=== PATIENT | male | born 1955 | race Two or more races ===

== ENCOUNTER 2021-02-03 16:00 | Emergency (ER) | payer OTHER, MEDICAID ==
[~2021-02-03] VITALS: Ht 172.7 cm; Wt 68.0 kg
[2021-02-03] MEDS ORDERED: LORazepam 2MG/ML-1ML VIAL IV ONE (16:30)
[2021-02-03] MEDS ORDERED: SODIUM CHLORIDE 0.9% 1,000 ML IV ONE ×2 (16:30)
[2021-02-03 16:43] LABS: Basophils # (auto) 0.1 10 ^3/uL (0-0.2); Basophils % (auto) 1.1 % (0.0-2.0); Eosinophils # (auto) 0.1 10 ^3/uL (0-0.8); Eosinophils % (auto) 2.3 % (0.0-7.0); Hematocrit 42.5 % (41.0-53.0); Hemoglobin 14.2 g/dL (13.5-17.5); Lymphocytes # (auto) 0.9 10 ^3/uL (0.4-5.4); Lymphocytes % (auto) 17.4 % (10.0-50.0); Mean Corpuscular Hemoglobin 27.7 pg (28.0-32.0); Mean Corpuscular Hgb Conc. 33.4 g/dL (32.0-36.0); Monocytes # (auto) 0.6 10 ^3/uL (0-1.3); Monocytes % (auto) 10.8 % (0.0-12.0); Neutrophils # (auto) 3.6 10 ^3/uL (1.6-8.6); Neutrophils % (auto) 68.4 % (37.0-80.0); Red Blood Cells 5.12 10^6/uL (4.5-5.90); Red Cell Distribution Width 17.9 % (11.8-14.3); White Blood Cell 5.3 10^3/uL (4.4-10.8)
[2021-02-03 17:03] LABS: Alanine Aminotransferase 36 U/L (16-61); Albumin 3.7 g/dL (3.4-5.0); Anion Gap 3 (5-15); Aspartate Aminotransferase 27 U/L (15-37); BUN/Creatinine Ratio 6.6; Blood Urea Nitrogen 7 mg/dL (7-18); Carbon Dioxide 26 mmol/L (21-32); Chloride 113 mmol/L (98-107); GFR African American 90 mL/min; GFR Non-African American 75 mL/min; Glucose 138 mg/dL (74-106); Sodium 142 mmol/L (136-145)
[2021-02-03 17:08] LABS: Alkaline Phosphatase 122 U/L (45-117); Bilirubin, Total 0.5 mg/dL (0.2-1.0); Total Protein 7.1 g/dL (6.4-8.2)
[2021-02-03] MEDS ORDERED: NITROGLYCERIN 50MG/250ML 250 ML IV ONE (18:12)
[2021-02-03 18:56] VITALS: BP 157/101
== END 2021-02-03 21:51 | disposition short-term general hospital (02) ==
LOC: ER 16:00 → EDBD 16:00 → ER 21:51
DX: R56.9 Unspecified convulsions (principal); G93.89 Other specified disorders of brain; I16.0 Hypertensive urgency; J44.9 Chronic obstructive pulmonary disease, unspecified; Z20.822 Contact with and (suspected) exposure to COVID-19
CPT/HCPCS: 36415; 70450; 71045; 80053; 84484; 85025; 87426; 93005; 96361; 96365; 96366; 96368; 96375; 99285; J1953; J2060; J7030; J7060

== ENCOUNTER 2021-07-19 16:37 | Inpatient (IN) | payer OTHER, MEDICAID ==
[~2021-07-19] VITALS: Ht 170.2 cm; Wt 49.8 kg
[2021-07-19] MEDS ORDERED: SODIUM CHLORIDE 0.9% 1,000 ML IV ONE (19:00)
[2021-07-19 21:01] LABS: Basophils # (auto) 0 10 ^3/uL (0-0.2); Basophils % (auto) 0.3 % (0.0-2.0); Eosinophils # (auto) 0.1 10 ^3/uL (0-0.8); Mean Corpuscular Hemoglobin 26.1 pg (28.0-32.0); Mean Corpuscular Hgb Conc. 31.4 g/dL (32.0-36.0); Monocytes # (auto) 1.3 10 ^3/uL (0-1.3)
[2021-07-19 21:03] LABS: Eosinophils % (auto) 0.5 % (0.0-7.0); Lymphocytes # (auto) 2.2 10 ^3/uL (0.4-5.4); Lymphocytes % (auto) 18.6 % (10.0-50.0); Monocytes % (auto) 10.4 % (0.0-12.0); Neutrophils # (auto) 8.4 10 ^3/uL (1.6-8.6); Neutrophils % (auto) 70.2 % (37.0-80.0); Nucleated Red Blood Cells % 0.2 %; Red Blood Cells 6.91 10^6/uL (4.5-5.90)
[2021-07-19 21:04] LABS: Hematocrit 57.4 % (41.0-53.0); Red Cell Distribution Width 21.1 % (11.8-14.3)
[2021-07-19 21:17] LABS: Calcium 10.5 mg/dL (8.5-10.1); Magnesium 3.8 mg/dL (1.6-2.6); Potassium 4.4 mmol/L (3.5-5.1)
[2021-07-19 21:25] LABS: BUN/Creatinine Ratio 31.3; Bilirubin, Total 0.7 mg/dL (0.2-1.0); Total Protein 7.8 g/dL (6.4-8.2)
[2021-07-19] MEDS ORDERED: D5W/SOD CHL 0.45% 1,000 ML IV ONE (23:30)
[2021-07-20] MEDS ORDERED: LORazepam 2MG/ML-1ML VIAL IV ONE (04:15)
[2021-07-20] MEDS ORDERED: MORPHINE SULFATE INJECTION 2 MG/ML SYRG IV PRN (04:30)
[2021-07-20] MEDS ORDERED: NITROGLYCERIN 0.4 MG SL TAB SL PRN (04:30)
[2021-07-20] MEDS ORDERED: D5W 5% 1,000 ML IV ONE (04:45)
[2021-07-20] MEDS ORDERED: DEXTROSE (50%) 50ML SYRG IV PRN (04:45)
[2021-07-20] MEDS: InsuLIN REG 1unit/0.01ml Soln (100units/ml) SC SCH ×4 (07:00→21:13)
[2021-07-20] MEDS: ACCU-CHEK COMFORT CURVE STRIP VI SCH ×4 (07:31→21:13)
[2021-07-20 07:55] LABS: Potassium 4.1 mmol/L (3.5-5.1)
[2021-07-20 08:05] LABS: BUN/Creatinine Ratio 33.8; Calcium 9.5 mg/dL (8.5-10.1)
[2021-07-20] MEDS: ENOXAPARIN SOD 40 MG/0.4 ML SYRINGE SC SCH (09:18)
[2021-07-20] MEDS ORDERED: amLODIPine BESYLATE 5 MG TAB PO ONE (10:45)
[2021-07-20] MEDS ORDERED: cefTRIAXone 1GM/50ML D5W 50 ML IV ONE (12:30)
[2021-07-20] MEDS ORDERED: SOD CHL 0.45% 1,000 ML IV SCH (12:30)
[2021-07-20 16:33] VITALS: BP 126/78
[2021-07-20 20:00] VITALS: BP 149/71
[2021-07-20] MEDS ORDERED: LORazepam 2MG/ML-1ML VIAL IV PRN (20:30)
[2021-07-20] MEDS: PHENYTOIN SODIUM 100 MG CAP PO SCH (21:20)
[2021-07-21] MEDS: D5W 5% 1,000 ML IV SCH ×5 (00:25→20:25)
[2021-07-21 05:00] VITALS: BP 139/75
[2021-07-21 05:41] LABS: Basophils # (auto) 0 10 ^3/uL (0-0.2); Eosinophils # (auto) 0.2 10 ^3/uL (0-0.8); Lymphocytes # (auto) 1.3 10 ^3/uL (0.4-5.4); Monocytes # (auto) 0.6 10 ^3/uL (0-1.3)
[2021-07-21 05:43] LABS: Basophils % (auto) 0.2 % (0.0-2.0); Eosinophils % (auto) 2.3 % (0.0-7.0); Hematocrit 45.4 % (41.0-53.0); Hemoglobin 14.6 g/dL (13.5-17.5); Lymphocytes % (auto) 19.3 % (10.0-50.0); Mean Corpuscular Hemoglobin 26.1 pg (28.0-32.0); Mean Corpuscular Hgb Conc. 32.2 g/dL (32.0-36.0); Mean Corpuscular Volume 80.9 fL (80.0-100.0); Monocytes % (auto) 8.7 % (0.0-12.0); Neutrophils # (auto) 4.7 10 ^3/uL (1.6-8.6); Neutrophils % (auto) 69.5 % (37.0-80.0); Nucleated Red Blood Cells % 0.3 %; Red Blood Cells 5.62 10^6/uL (4.5-5.90); White Blood Cell 6.8 10^3/uL (4.4-10.8)
[2021-07-21 05:53] LABS: Red Cell Distribution Width 20.3 % (11.8-14.3)
[2021-07-21 06:00] LABS: Albumin 3.2 g/dL (3.4-5.0); Calcium 8.9 mg/dL (8.5-10.1); Potassium 3.3 mmol/L (3.5-5.1)
[2021-07-21 06:06] LABS: BUN/Creatinine Ratio 30.1; Bilirubin, Total 0.7 mg/dL (0.2-1.0); Total Protein 6.4 g/dL (6.4-8.2)
[2021-07-21] MEDS: ACCU-CHEK COMFORT CURVE STRIP VI SCH ×4 (06:08→21:16)
[2021-07-21] MEDS: InsuLIN REG 1unit/0.01ml Soln (100units/ml) SC SCH ×4 (06:09→21:09)
[2021-07-21 08:30] VITALS: BP 144/69
[2021-07-21] MEDS: cefTRIAXone 1GM/50ML D5W 50 ML IV SCH (08:33)
[2021-07-21] MEDS: PHENYTOIN SODIUM 100 MG CAP PO SCH ×2 (09:40→21:15)
[2021-07-21] MEDS: ENOXAPARIN SOD 40 MG/0.4 ML SYRINGE SC SCH (09:41)
[2021-07-21] MEDS: amLODIPine BESYLATE 5 MG TAB PO SCH (09:41)
[2021-07-21 10:30] VITALS: BP 144/69
[2021-07-21 13:00] VITALS: BP 129/18
[2021-07-21 17:00] VITALS: BP 110/57
[2021-07-21] MEDS ORDERED: acetaZOLAMIDE SODIUM 500 MG VL IV ONE (19:30)
[2021-07-21] MEDS ORDERED: LORazepam 2MG/ML-1ML VIAL IV PRN ×2 (19:30)
[2021-07-21 22:00] VITALS: BP 135/83
[2021-07-22] MEDS: D5W 5% 1,000 ML IV SCH ×2 (01:09→16:00)
[2021-07-22 01:49] LABS: Urine Bacteria FEW /hpf (None Seen); Urine Blood Negative /uL (Negative); Urine Hyaline Cast FEW /lpf (0 - 2); Urine Specific Gravity 1.014 (1.001-1.035); Urine WBC 2 /hpf (0 - 3)
[2021-07-22 01:58] LABS: Amphetamine Screen, Urine NEGATIVE (NEGATIVE); Barbiturate Scree,Urine NEGATIVE (NEGATIVE); Benzodiazephine Screen, Urine NEGATIVE (NEGATIVE); Cannabinoid Screen, Urine NEGATIVE (NEGATIVE); Cocaine Screen, Urine NEGATIVE (NEGATIVE); Opiate Scree,Urine NEGATIVE (NEGATIVE); Phencyclidine Screen, Urine NEGATIVE (NEGATIVE)
[2021-07-22 05:00] VITALS: BP 130/73
[2021-07-22] MEDS: ACCU-CHEK COMFORT CURVE STRIP VI SCH ×4 (06:17→22:15)
[2021-07-22] MEDS: InsuLIN REG 1unit/0.01ml Soln (100units/ml) SC SCH ×4 (06:19→22:00)
[2021-07-22 09:00] VITALS: BP 137/70
[2021-07-22 09:03] LABS: Basophils # (auto) 0 10 ^3/uL (0-0.2); Eosinophils # (auto) 0.1 10 ^3/uL (0-0.8); Hemoglobin 14.9 g/dL (13.5-17.5); Mean Corpuscular Hgb Conc. 32.6 g/dL (32.0-36.0); Monocytes # (auto) 0.6 10 ^3/uL (0-1.3); Nucleated Red Blood Cells % 0.1 %; White Blood Cell 6.3 10^3/uL (4.4-10.8)
[2021-07-22 09:07] LABS: Basophils % (auto) 0.3 % (0.0-2.0); Hematocrit 45.6 % (41.0-53.0); Lymphocytes % (auto) 16.4 % (10.0-50.0); Mean Corpuscular Volume 79.9 fL (80.0-100.0); Monocytes % (auto) 9.9 % (0.0-12.0); Neutrophils # (auto) 4.5 10 ^3/uL (1.6-8.6); Neutrophils % (auto) 71.4 % (37.0-80.0); Red Blood Cells 5.71 10^6/uL (4.5-5.90); Red Cell Distribution Width 19.2 % (11.8-14.3)
[2021-07-22] MEDS: PHENYTOIN SODIUM 100 MG CAP PO SCH ×2 (09:25→22:15)
[2021-07-22] MEDS: amLODIPine BESYLATE 5 MG TAB PO SCH (09:26)
[2021-07-22] MEDS: ENOXAPARIN SOD 40 MG/0.4 ML SYRINGE SC SCH (09:26)
[2021-07-22 09:36] LABS: Potassium 3.3 mmol/L (3.5-5.1)
[2021-07-22 09:44] LABS: Albumin 3.1 g/dL (3.4-5.0); BUN/Creatinine Ratio 21.4; Bilirubin, Total 0.7 mg/dL (0.2-1.0); Calcium 8.9 mg/dL (8.5-10.1); Total Protein 6.5 g/dL (6.4-8.2)
[2021-07-22] MEDS ORDERED: VANCOMYCIN PER PHARMACY 0 MG IV SCH (10:00)
[2021-07-22] MEDS ORDERED: VANCOMYCIN 1GM/250ML 250 ML IV ONE (10:00)
[2021-07-22] MEDS: POTASSIUM CHL 20MEQ/50ML 50 ML IV SCH ×4 (11:45→18:33)
[2021-07-22 13:00] VITALS: BP 123/68
[2021-07-22] MEDS: cefTRIAXone 1GM/50ML D5W 50 ML IV SCH (16:00)
[2021-07-22 17:00] VITALS: BP 133/78
[2021-07-22] MEDS ORDERED: PHENYTOIN IV DILANTIN 500 MG in SODIUM CHL 0.9% 100 ML IV ONE (19:30)
[2021-07-22 20:42] VITALS: BP 115/68
[2021-07-22] MEDS: VANCOMYCIN 1GM/250ML 250 ML IV SCH (21:16)
[2021-07-22 22:00] VITALS: BP 103/83
[2021-07-23] MEDS: D5W 5% 1,000 ML IV SCH (02:25)
[2021-07-23 05:00] VITALS: BP 111/68
[2021-07-23 05:58] LABS: Basophils # (auto) 0 10 ^3/uL (0-0.2); Eosinophils # (auto) 0.1 10 ^3/uL (0-0.8); Hematocrit 43.6 % (41.0-53.0); Hemoglobin 14.3 g/dL (13.5-17.5); Lymphocytes # (auto) 0.5 10 ^3/uL (0.4-5.4); Mean Corpuscular Hgb Conc. 32.8 g/dL (32.0-36.0); Neutrophils # (auto) 5.6 10 ^3/uL (1.6-8.6); Nucleated Red Blood Cells % 0.1 %; Red Blood Cells 5.48 10^6/uL (4.5-5.90)
[2021-07-23 06:01] LABS: Basophils % (auto) 0.2 % (0.0-2.0); Eosinophils % (auto) 1.1 % (0.0-7.0); Lymphocytes % (auto) 6.8 % (10.0-50.0); Mean Corpuscular Hemoglobin 26.1 pg (28.0-32.0); Mean Corpuscular Volume 79.5 fL (80.0-100.0); Monocytes # (auto) 0.5 10 ^3/uL (0-1.3); Monocytes % (auto) 8.1 % (0.0-12.0); Neutrophils % (auto) 83.8 % (37.0-80.0); Red Cell Distribution Width 19.5 % (11.8-14.3); White Blood Cell 6.7 10^3/uL (4.4-10.8)
[2021-07-23] MEDS: ACCU-CHEK COMFORT CURVE STRIP VI SCH ×3 (06:09→16:44)
[2021-07-23] MEDS: InsuLIN REG 1unit/0.01ml Soln (100units/ml) SC SCH ×3 (06:09→16:44)
[2021-07-23 06:13] LABS: Albumin 2.9 g/dL (3.4-5.0); Potassium 3.6 mmol/L (3.5-5.1)
[2021-07-23 06:19] LABS: Bilirubin, Total 0.4 mg/dL (0.2-1.0)
[2021-07-23] MEDS: cefTRIAXone 1GM/50ML D5W 50 ML IV SCH (09:00)
[2021-07-23] MEDS: PHENYTOIN SODIUM 100 MG CAP PO SCH (10:01)
[2021-07-23] MEDS: ENOXAPARIN SOD 40 MG/0.4 ML SYRINGE SC SCH (10:02)
[2021-07-23] MEDS: amLODIPine BESYLATE 5 MG TAB PO SCH (10:02)
[2021-07-23] MEDS: VANCOMYCIN 1GM/250ML 250 ML IV SCH (11:00)
[2021-07-23] MEDS: Glucerna Carbsteady SHAKE Vanilla 8oz PO SCH ×2 (11:48→16:44)
[2021-07-23 12:30] VITALS: BP 138/66
[2021-07-23 17:19] VITALS: BP 86/43
== END 2021-07-23 19:30 | disposition hospice, home (50) | DRG 871 ==
LOC: ER 16:37 → EDBD 16:37 → OVERFLOW 07-20 04:29 → CENTRAL 07-20 12:39
PROVIDERS: ADMIT Internal Medicine; ATTEND Family Medicine
DX: A41.9 Sepsis, unspecified organism (principal); I21.A1 Myocardial infarction type 2; G93.6 Cerebral edema; N17.9 Acute kidney failure, unspecified; E87.0 Hyperosmolality and hypernatremia; E87.1 Hypo-osmolality and hyponatremia; J44.1 Chronic obstructive pulmonary disease with (acute) exacerbation; Z20.822 Contact with and (suspected) exposure to COVID-19; E86.0 Dehydration; R62.7 Adult failure to thrive; E87.8 Other disorders of electrolyte and fluid balance, not elsewhere classified; E83.52 Hypercalcemia; E87.6 Hypokalemia; F03.90 Unspecified dementia, unspecified severity, without behavioral disturbance, psychotic disturbance, mood disturbance, and anxiety; I10 Essential (primary) hypertension; J44.9 Chronic obstructive pulmonary disease, unspecified; D72.829 Elevated white blood cell count, unspecified; F09 Unspecified mental disorder due to known physiological condition; G40.901 Epilepsy, unspecified, not intractable, with status epilepticus; Z85.841 Personal history of malignant neoplasm of brain
CPT/HCPCS: 36415; 70450; 71045; 80048; 80053; 80185; 80307; 81001; 82962; 83735; 84484; 85025; 87040; 87077; 87086; 87186; 87426; 93005; 93306; 96360; 96361; 96374; 97163; G0378; J0696; J1815

== ENCOUNTER 2021-07-26 11:50 | Inpatient (IN) | payer OTHER, MEDICAID ==
[~2021-07-26] VITALS: Ht 167.6 cm; Wt 56.3 kg
[2021-07-26] MEDS ORDERED: MIDAZOLAM HCL 5 MG/ML-1ML VIAL ONE (11:56)
[2021-07-26] MEDS ORDERED: MIDAZOLAM DRIP 50 mg/50mL 50 ML IV ONE (12:00)
[2021-07-26] MEDS: MIDAZOLAM DRIP 50 mg/50mL 50 ML IV SCH (12:03)
[2021-07-26] MEDS ORDERED: MIDAZOLAM HCL 5 MG/ML-1ML VIAL IV ONE (12:15)
[2021-07-26] MEDS ORDERED: SODIUM CHLORIDE 0.9% 500 ML IV ONE (12:30)
[2021-07-26 12:46] LABS: Basophils # (auto) 0 10 ^3/uL (0-0.2); Eosinophils # (auto) 0 10 ^3/uL (0-0.8); Hemoglobin 13.3 g/dL (13.5-17.5); Lymphocytes # (auto) 0.3 10 ^3/uL (0.4-5.4); Mean Corpuscular Hemoglobin 26.2 pg (28.0-32.0); Monocytes # (auto) 0.3 10 ^3/uL (0-1.3); Neutrophils # (auto) 3.2 10 ^3/uL (1.6-8.6); Nucleated Red Blood Cells % 0.1 %; Red Blood Cells 5.07 10^6/uL (4.5-5.90); White Blood Cell 3.9 10^3/uL (4.4-10.8)
[2021-07-26 12:47] LABS: Basophils % (auto) 0.2 % (0.0-2.0); Eosinophils % (auto) 0.7 % (0.0-7.0); Hematocrit 40.5 % (41.0-53.0); Lymphocytes % (auto) 7.9 % (10.0-50.0); Mean Corpuscular Hgb Conc. 32.8 g/dL (32.0-36.0); Monocytes % (auto) 7.6 % (0.0-12.0); Neutrophils % (auto) 83.6 % (37.0-80.0); Red Cell Distribution Width 20.2 % (11.8-14.3)
[2021-07-26 13:14] LABS: Albumin 2.6 g/dL (3.4-5.0); Potassium 3.2 mmol/L (3.5-5.1)
[2021-07-26 13:20] LABS: Bilirubin, Total 0.3 mg/dL (0.2-1.0); Total Protein 5.6 g/dL (6.4-8.2)
[2021-07-26] MEDS ORDERED: MORPHINE SULFATE INJECTION 2 MG/ML SYRG IV PRN ×3 (13:30→17:00)
[2021-07-26] MEDS ORDERED: NITROGLYCERIN 0.4 MG SL TAB SL PRN ×2 (13:30→17:00)
[2021-07-26 14:02] LABS: Urine Bacteria NONE SEEN /hpf (None Seen); Urine Blood 1+ /uL (Negative); Urine Specific Gravity 1.009 (1.001-1.035); Urine WBC 1 /hpf (0 - 3)
[2021-07-26] MEDS ORDERED: SODIUM CHLORIDE 0.9% 1,000 ML IV ONE (15:15)
[2021-07-26] MEDS ORDERED: levoFLOXacin 750MG 150 ML IV ONE (16:45)
[2021-07-26] MEDS ORDERED: IPRATROPIUM BROM 0.5 MG/2.5ML INH SOL NEB ONE (16:45)
[2021-07-26] MEDS ORDERED: MANNITOL 20% SOLN 100 gm/500ml 250 ML IV ONE (16:45)
[2021-07-26] MEDS ORDERED: methylPREDNISolone SOD SUCC 125 MG/2 ML VL IV ONE (16:45)
[2021-07-26] MEDS ORDERED: POTASSIUM CHL 20MEQ/50ML 50 ML IV ONE (16:45)
[2021-07-26] MEDS ORDERED: hydrALAZINE HCL 20 MG/ML VL IV PRN (16:45)
[2021-07-26] MEDS ORDERED: PHENYTOIN 100 MG/4 ML SUSP GT ONE (16:45)
[2021-07-26] MEDS ORDERED: ACETAMINOPHEN 325 MG TAB PO PRN (17:00)
[2021-07-26] MEDS ORDERED: ONDANSETRON HCL 4 MG/2 ML VIAL IV PRN (17:00)
[2021-07-26] MEDS ORDERED: HYDROcodone-ACET 5/325MG TAB PO PRN (17:00)
[2021-07-26] MEDS ORDERED: ALUM & MAG HYDROX-SIMETH LIQ(MAALOX) 30 ML PO PRN (17:00)
[2021-07-26] MEDS ORDERED: DOCUSATE SOD 100 MG CAP PO PRN (17:00)
[2021-07-26] MEDS ORDERED: LORazepam 0.5 MG TAB PO PRN (17:00)
[2021-07-26] MEDS ORDERED: NOREPINEPHRINE 8 MG/250ML KIT 250 ML IV ONE (17:33)
[2021-07-26] MEDS: NOREPINEPHRINE 8 MG/250ML KIT 250 ML IV SCH (17:50)
[2021-07-26] MEDS: D5W 5% 1,000 ML IV SCH (17:50)
[2021-07-26 18:09] LABS: Cholesterol 160 mg/dL (< 200)
[2021-07-26 18:11] LABS: HDL Cholesterol 43 mg/dL (40-59); LDL Cholesterol 101 mg/dL (< 100); Triglycerides 67 mg/dL (< 150)
[2021-07-26 18:17] VITALS: BP 120/67
[2021-07-26] MEDS: BUDESONIDE (INHALATION) 0.5 MG/2 ML NEB NEB SCH (18:17)
[2021-07-26] MEDS: IPRATROPIUM BROM 0.5 MG/2.5ML INH SOL NEB SCH ×2 (18:17→22:52)
[2021-07-26 21:37] LABS: Magnesium 2.2 mg/dL (1.6-2.6); Phosphorus 2.2 mg/dL (2.5-4.90)
[2021-07-26] MEDS: methylPREDNISolone SOD SUCC 40 MG/ML VL IV SCH (22:00)
[2021-07-26] MEDS: ATORVASTATIN 20 MG TAB PO SCH (22:00)
[2021-07-26 22:52] VITALS: BP 151/94
[2021-07-27] VITALS (20 sets, daily range): BP systolic 112–165; BP diastolic 68–104
[2021-07-27] MEDS: IPRATROPIUM BROM 0.5 MG/2.5ML INH SOL NEB SCH ×6 (01:38→22:03)
[2021-07-27] MEDS ORDERED: fentaNYL Drip 2500mCg/250mlNS 250 ML IV ONE (01:49)
[2021-07-27] MEDS: fentaNYL Drip 2500mCg/250mlNS 250 ML IV SCH ×2 (02:02→22:36)
[2021-07-27] MEDS: MIDAZOLAM DRIP 50 mg/50mL 50 ML IV SCH ×3 (03:36→22:35)
[2021-07-27] MEDS: PHENYTOIN 100 MG/4 ML SUSP GT SCH ×2 (05:19→17:00)
[2021-07-27] MEDS: methylPREDNISolone SOD SUCC 40 MG/ML VL IV SCH ×3 (06:01→22:34)
[2021-07-27] MEDS: D5W 5% 1,000 ML IV SCH (06:05)
[2021-07-27] MEDS: BUDESONIDE (INHALATION) 0.5 MG/2 ML NEB NEB SCH ×2 (09:20→22:03)
[2021-07-27] MEDS ORDERED: levoFLOXacin 750MG 150 ML IV SCH (10:00)
[2021-07-27] MEDS ORDERED: ENOXAPARIN SOD 40 MG/0.4 ML SYRINGE SC SCH (10:00)
[2021-07-27 10:06] LABS: Basophils # (auto) 0 10 ^3/uL (0-0.2); Basophils % (auto) 0.1 % (0.0-2.0); Eosinophils # (auto) 0 10 ^3/uL (0-0.8); Lymphocytes # (auto) 0.3 10 ^3/uL (0.4-5.4); Monocytes # (auto) 0.4 10 ^3/uL (0-1.3)
[2021-07-27 10:10] LABS: Hematocrit 39.6 % (41.0-53.0); Hemoglobin 13.3 g/dL (13.5-17.5); Lymphocytes % (auto) 4.2 % (10.0-50.0); Mean Corpuscular Hemoglobin 26.4 pg (28.0-32.0); Mean Corpuscular Hgb Conc. 33.5 g/dL (32.0-36.0); Monocytes % (auto) 5.1 % (0.0-12.0); Neutrophils # (auto) 7.4 10 ^3/uL (1.6-8.6); Neutrophils % (auto) 90.6 % (37.0-80.0); Red Blood Cells 5.01 10^6/uL (4.5-5.90); White Blood Cell 8.2 10^3/uL (4.4-10.8)
[2021-07-27 10:13] LABS: Potassium 4.7 mmol/L (3.5-5.1); Red Cell Distribution Width 20.7 % (11.8-14.3)
[2021-07-27 10:30] LABS: Albumin 2.6 g/dL (3.4-5.0); BUN/Creatinine Ratio 22.4; Bilirubin, Total 0.2 mg/dL (0.2-1.0); Calcium 8.4 mg/dL (8.5-10.1); Magnesium 2.8 mg/dL (1.6-2.6); Total Protein 5.6 g/dL (6.4-8.2)
[2021-07-27 10:38] LABS: INR 1.1 (0.9-1.15); Partial Thromboplastin Time 33.5 sec (23.6-33.0)
[2021-07-27] MEDS: NOREPINEPHRINE 8 MG/250ML KIT 250 ML IV SCH (18:00)
[2021-07-27] MEDS ORDERED: LORazepam 2MG/ML-1ML VIAL IV PRN (19:00)
[2021-07-27 19:14] LABS: Alcohol, Urine < 3.0 mg/dL (0-10); Amphetamine Screen, Urine NEGATIVE (NEGATIVE); Barbiturate Scree,Urine NEGATIVE (NEGATIVE); Benzodiazephine Screen, Urine POSITIVE (NEGATIVE); Cannabinoid Screen, Urine NEGATIVE (NEGATIVE); Cocaine Screen, Urine NEGATIVE (NEGATIVE); Opiate Scree,Urine NEGATIVE (NEGATIVE); Phencyclidine Screen, Urine NEGATIVE (NEGATIVE)
[2021-07-27] MEDS: ATORVASTATIN 20 MG TAB PO SCH (22:34)
[2021-07-28] VITALS (40 sets, daily range): BP systolic 66–150; BP diastolic 40–94
[2021-07-28] MEDS: IPRATROPIUM BROM 0.5 MG/2.5ML INH SOL NEB SCH ×3 (02:08→10:45)
[2021-07-28] MEDS: MIDAZOLAM DRIP 50 mg/50mL 50 ML IV SCH ×3 (04:15→23:02)
[2021-07-28] MEDS: PHENYTOIN 100 MG/4 ML SUSP GT SCH ×2 (05:25→17:00)
[2021-07-28] MEDS: methylPREDNISolone SOD SUCC 40 MG/ML VL IV SCH (05:25)
[2021-07-28] MEDS: BUDESONIDE (INHALATION) 0.5 MG/2 ML NEB NEB SCH (06:07)
[2021-07-28] MEDS ORDERED: LORazepam 2MG/ML-1ML VIAL IV PRN (12:00)
[2021-07-28] MEDS: NOREPINEPHRINE 8 MG/250ML KIT 250 ML IV SCH (18:00)
[2021-07-29] VITALS (66 sets, daily range): BP systolic 44–108; BP diastolic 21–73
[2021-07-29] MEDS: fentaNYL Drip 2500mCg/250mlNS 250 ML IV SCH ×3 (01:30→19:16)
[2021-07-29] MEDS: PHENYTOIN 100 MG/4 ML SUSP GT SCH ×2 (06:13→17:11)
[2021-07-29] MEDS: NOREPINEPHRINE 8 MG/250ML KIT 250 ML IV SCH (08:05)
[2021-07-29] MEDS: MIDAZOLAM DRIP 50 mg/50mL 50 ML IV SCH ×3 (11:31→23:17)
[2021-07-30] VITALS (38 sets, daily range): BP systolic 45–52; BP diastolic 23–29
[2021-07-30] MEDS: PHENYTOIN 100 MG/4 ML SUSP GT SCH ×2 (05:10→17:00)
[2021-07-30] MEDS: MIDAZOLAM DRIP 50 mg/50mL 50 ML IV SCH ×3 (05:12→23:32)
[2021-07-30] MEDS: fentaNYL Drip 2500mCg/250mlNS 250 ML IV SCH ×2 (06:24→18:44)
[2021-07-31] VITALS (19 sets, daily range): BP systolic 47–62; BP diastolic 25–42
[2021-07-31] MEDS: MIDAZOLAM DRIP 50 mg/50mL 50 ML IV SCH ×2 (01:37→12:45)
[2021-07-31] MEDS: fentaNYL Drip 2500mCg/250mlNS 250 ML IV SCH ×2 (04:53→19:22)
[2021-07-31] MEDS: PHENYTOIN 100 MG/4 ML SUSP GT SCH ×2 (05:02→17:00)
== END 2021-07-31 22:02 | DRG 207 ==
LOC: ER 11:50 → EDBD 11:50 → EDUNIT# 11:50 → TELE 13:26 → CATH ICU 07-27 15:57 → UNDODISIN 08-01 21:32 → TELE 08-23 14:06 → CATH ICU 08-23 14:06
PROVIDERS: ADMIT Hospitalist; ATTEND Internal Medicine
PROC: 06HM33Z Insertion of Infusion Device into Right Femoral Vein, Percutaneous Approach (ICD-10-PCS; principal; 2021-07-26)
PROC: 4A143B0 Monitoring of Venous Pressure, Central, Percutaneous Approach (ICD-10-PCS; 2021-07-26)
PROC: 5A1955Z Respiratory Ventilation, Greater than 96 Consecutive Hours (ICD-10-PCS; 2021-07-26)
PROC: 0BH17EZ Insertion of Endotracheal Airway into Trachea, Via Natural or Artificial Opening (ICD-10-PCS; 2021-07-26)
DX: J96.21 Acute and chronic respiratory failure with hypoxia (principal); G93.41 Metabolic encephalopathy; E43 Unspecified severe protein-calorie malnutrition; J69.0 Pneumonitis due to inhalation of food and vomit; K29.71 Gastritis, unspecified, with bleeding; J44.1 Chronic obstructive pulmonary disease with (acute) exacerbation; E87.0 Hyperosmolality and hypernatremia; C71.9 Malignant neoplasm of brain, unspecified; J44.0 Chronic obstructive pulmonary disease with (acute) lower respiratory infection; E87.2 Acidosis; N17.9 Acute kidney failure, unspecified; G93.89 Other specified disorders of brain; I10 Essential (primary) hypertension; I95.9 Hypotension, unspecified; G40.901 Epilepsy, unspecified, not intractable, with status epilepticus; Z66 Do not resuscitate; F09 Unspecified mental disorder due to known physiological condition; D69.6 Thrombocytopenia, unspecified; Z20.822 Contact with and (suspected) exposure to COVID-19; E87.6 Hypokalemia; R79.89 Other specified abnormal findings of blood chemistry; F03.90 Unspecified dementia, unspecified severity, without behavioral disturbance, psychotic disturbance, mood disturbance, and anxiety; Z68.20 Body mass index [BMI] 20.0-20.9, adult; Z85.841 Personal history of malignant neoplasm of brain; Z51.5 Encounter for palliative care
CPT/HCPCS: 31500; 36415; 36556; 36600; 70450; 71045; 80053; 80061; 80185; 80307; 81001; 82805; 83036; 83605; 83735; 83880; 83930; 84100; 84484; 85025; 85379; 85610; 85730; 87040; 87081; 87086; 87426; 93005; 93970; 94002; 94003; 94640; 96360; 99291; G0378; J1956; J2250